=== PATIENT | male | born 1955 ===

== ENCOUNTER 2023-04-29 07:40 | Inpatient (IN) | payer MEDICARE, MEDICAID, SELFPAY ==
[2023-04-29] VITALS (10 sets, daily range): BP systolic 110–145; BP diastolic 56–79; PULSE 86–104; RESP 14–20; TEMP 35.4–36.9; O2SAT 96–99; BMI 21.7
--- NOTE | ~2023-04-29 | XR_ITS ---
EXAMINATION: XR CHEST CLINICAL INFORMATION: Weakness COMPARISON: None available. TECHNIQUE: Frontal view of the chest was obtained. FINDINGS: No significant abnormality is noted involving the heart, lungs, mediastinum, bony thorax or soft tissues. XR/XR chest 1V IMPRESSION: Unremarkable chest examination.
--- NOTE | ~2023-04-29 | CT_ITS ---
EXAMINATION: CT HEAD WITHOUT CONTRAST (STROKE PROTOCOL) CLINICAL INFORMATION: Stroke protocol. Mental confusion, not responsive to commands. COMPARISON: CT scan of brain on 07/31/2013 TECHNIQUE: Contiguous axial imaging was performed from the skull base to vertex without intravenous administration of contrast. This CT examination was performed using dose optimization techniques as appropriate, variously including the following: *Automated exposure control *Adjustment of mA and/or kV according to patient size (this includes techniques or standardized protocols for targeted exams where dose is matched to indication/reason for exam; i.e. extremities or head) *Use of iterative reconstruction technique DLP: 1082 mGy-cm FINDINGS: Ventricles, sulci and cisterns are dilated. Patchy asymmetric decrease in attenuation is seen in left parietal periventricular and deep white matter There is no midline shift, no abnormal intra- or extra- axial fluid accumulation. Mason and white matter differentiation is normal. Bone window images show no evidence of skull fracture. CT/CT head for stroke IMPRESSION: 1. Interval development of cerebral atrophy and ventriculomegaly. 2. Interval development of left parietal periventricular and deep white matter ischemic lesion or probably chronic white matter infarct. 3. No intracranial hemorrhage or skull fracture is seen. 4. No evidence of space occupying lesion could be found. This critical result was discussed with Dr. Bella Peters at 1025 hours on 04/30/2023. It was ascertained that the content and urgency of the report was understood at the time of direct communication.
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
--- NOTE | 2023-04-29 08:19 | ECG_ITS ---
Test Reason : weakness Blood Pressure : / mmHG Vent. Rate : 085 BPM Atrial Rate : 085 BPM P-R Int : 144 ms QRS Dur : 074 ms QT Int : 392 ms P-R-T Axes : 061 026 059 degrees QTc Int : 466 ms Normal sinus rhythm Normal ECG No previous ECGs available Referred By: Aravnid Ramirez Electronically Signed By:MELANI WELDON MD
[2023-04-29 09:02] LABS: Appearance Urine Clear; Color Urine Yellow; Glucose Urine UA Negative (Negative); Leukocyte Esterase Urine Negative (Negative); Nitrite Urine Negative (Negative); Specific Gravity - Urine 1.015 (1.005-1.025); UMIC TRIGGER UACC YES; Urine Blood Large (3+) (Negative); Urine Ketones Negative (Negative); Urine Protein 30 (1+) mg/dL (Neg-Trace)
[2023-04-29 09:07] LABS: Bacteria Urine None Seen (None Seen); Hyaline Casts Urine 0-2 /LPF (0-2); RBC Urine >20 /HPF (0-2); Squamous Epithelial Cell Urine 0-2 /HPF (0-2); WBC Urine 0-5 /HPF (0-5)
[2023-04-29 09:08] LABS: Basophils Percent Auto 0.3 % (0-2); Eosinophils Absolute Auto 0.4 X10*3/uL (0.0-0.4); Eosinophils Percent Auto 3.2 % (0-4); Hematocrit 23.4 % (42.0-52.0); Hemoglobin 7.1 g/dl (14.0-18.0); Imm Gran Abs Auto 0.19 X10*3/uL (0.00-0.03); Imm Gran Pct Auto 1.7 % (0.0-0.4); Lymphocytes Absolute Auto 1.5 X10*3/uL (1.2-4.9); Lymphocytes Percent Auto 13.3 % (20-40); MANUAL DIFF FLAG SCAN; Mean Corpuscular HGB Conc 30.3 g/dl (31.0-36.0); Monocytes Percent Auto 9.3 % (2-11); Neutrophils Absolute Auto 7.9 x10*3/uL (2.0-8.3); Neutrophils Percent Auto 72.2 % (45-73); PLT CLUMP 1; Red Blood Count 2.63 X10*6/uL (4.60-5.80); Red Cell Distribution Width 14.9 % (11.0-16.0); SCAN SMEAR FLAG 1
[2023-04-29 09:18] LABS: Alanine Aminotransferase 21 U/L (0-40); Albumin Level 3.1 g/dL (3.5-5.0); Alkaline Phosphatase 144 U/L (39-117); Anion Gap 15 (12-20); Aspartate Amino Transferase 26 U/L (5-37); Bilirubin Total 0.2 mg/dL (0.0-1.0); Blood Urea Nitrogen 34 mg/dL (9-16); Calcium 10.2 mg/dL (8.4-10.2); Carbon Dioxide 25 mmol/L (22-29); Chloride 104 mmol/L (96-108); Creatinine Clr Calc Pharmacy 61.2; Estimated Glomerular Filt Rate > 60; Glucose Random 98 mg/dL (60-115); Lipase 18 U/L (8-78); Potassium 4.7 mmol/L (3.3-5.1); Sodium 139 mmol/L (135-145); Total Protein 8.8 g/dL (6.5-8.0)
[2023-04-29 09:24] LABS: Troponin-I High Sensitivity < 2.7 ng/L (<3.5-35.0)
[2023-04-29 09:40] LABS: SLIDE REVIEW VERIFIED
[2023-04-29 09:44] LABS: Influenza A PCR NEGATIVE (Negative); Influenza B PCR NEGATIVE (Negative); Resp Syncy Virus RNA Qual PCR NEGATIVE (Negative); SARS COV2 PCR INHOUSE NEGATIVE (Negative)
[2023-04-29 09:52] LABS: INTERNATIONAL NORM RATIO 1.1 (0.9-1.1); Prothrombin Time 13.3 SEC (11.1-13.3)
[2023-04-29 09:54] LABS: Partial Thromboplastin Time 36.1 SEC (26.0-36.8)
[2023-04-29 10:21] LABS: OBS Int Ctl Valid YES; OBS1 NEGATIVE (NEGATIVE)
--- NOTE | 2023-04-29 11:48 | PC.NURSE ---
First unit of RBC transfusing, this RN at bedside. Pt tolerating infusion well, denies any SOB, pain or complaints.
--- NOTE | 2023-04-29 11:54 | PC.NURSE ---
Pt continues to tolerate infusion well, no complaints. VSS.
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
[2023-04-29 13:25] LABS: Iron 44 mcg/dL (45-160); Lactate Dehydrogenase 368 U/L (118-273); Percent Iron Saturation 21 % (15-50); Total Iron Binding Capacity 206 mcg/dL (228-428); Unsaturated Iron Binding 162 ug/dL
--- NOTE | 2023-04-29 13:48 | PHA.MEDREC ---
Pharmacy Consult ? Medication Reconciliation Pharmacy has completed the medication reconciliation.Med rec complete, used list from [facility]
[2023-04-29 14:29] LABS: Ferritin 1593 ng/mL (20-250)
[2023-04-29] MEDS: Baclofen 10 MG TABLET 5 MG PO ×2 (17:24→21:11)
[2023-04-29 20:31] LABS: MANUAL DIFF FLAG NO
[2023-04-29 20:37] LABS: Basophils Percent Auto 0.3 % (0-2); Eosinophils Absolute Auto 0.4 X10*3/uL (0.0-0.4); Hemoglobin 8.4 g/dl (14.0-18.0); Imm Gran Abs Auto 0.15 X10*3/uL (0.00-0.03); Imm Gran Pct Auto 1.3 % (0.0-0.4); Lymphocytes Absolute Auto 1.2 X10*3/uL (1.2-4.9); Lymphocytes Percent Auto 10.4 % (20-40); Mean Corpuscular HGB Conc 32.3 g/dl (31.0-36.0); Mean Corpuscular Hemoglobin 28.4 pg (27.0-33.0); Mean Corpuscular Volume 87.8 fL (80.0-98.0); Mean Platelet Volume 9.1 fL (9.4-12.4); Monocytes Absolute Auto 1.4 X10*3/uL (0.1-1.2); Neutrophils Absolute Auto 8.7 x10*3/uL (2.0-8.3); Platelet Count 548 X10*3/uL (160-400); Red Blood Count 2.96 X10*6/uL (4.60-5.80); Red Cell Distribution Width 14.5 % (11.0-16.0)
[2023-04-29] MEDS: carvediloL 12.5 MG TABLET PO (21:11)
[2023-04-29] MEDS: Docusate Sodium 100 MG/10 ML LIQUID PO (21:11)
[2023-04-29] MEDS: QUEtiapine Fumarate 50 MG TABLET PO (21:11)
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
[2023-04-30] VITALS (7 sets, daily range): BP systolic 95–137; BP diastolic 56–73; PULSE 77–98; RESP 15–18; TEMP 36.4–37.7; O2SAT 96–99; BMI 21.7
--- NOTE | 2023-04-30 | EEG_ITS ---
This is a 16 channel EEG with an EKG lead. The patient is reported confused during the tracing. Background EEG rhythm at times was low amplitude, fast with intermittent generalized slowing with transition to theta to delta range with no obvious asymmetry or paroxysmal tendency. No obvious sharp waves or spikes were noted. Photic stimulation did not produce any significant driving. Hyperventilation was not performed. Cardiac lead did not reveal any significant abnormality. IMPRESSION: No significant abnormality or epileptic tendency noted on this EEG other than generalized slowing. MD CHRISTIANE Obrien/JOSÉ MANUEL / [id number]
[2023-04-30] MEDS: Omeprazole/Na Bicarb Oral Susp 20 MG/10 ML UD Cup G-TUBE (06:28)
[2023-04-30 06:50] LABS: Basophils Absolute Auto 0.1 X10*3/uL (0.0-0.2); Basophils Percent Auto 0.4 % (0-2); Eosinophils Absolute Auto 0.3 X10*3/uL (0.0-0.4); Eosinophils Percent Auto 2.2 % (0-4); Hemoglobin 8.5 g/dl (14.0-18.0); Imm Gran Abs Auto 0.18 X10*3/uL (0.00-0.03); Imm Gran Pct Auto 1.5 % (0.0-0.4); Lymphocytes Absolute Auto 1.2 X10*3/uL (1.2-4.9); Lymphocytes Percent Auto 9.7 % (20-40); MANUAL DIFF FLAG SCAN; Mean Corpuscular HGB Conc 32.7 g/dl (31.0-36.0); Mean Corpuscular Hemoglobin 28.3 pg (27.0-33.0); Mean Corpuscular Volume 86.7 fL (80.0-98.0); Mean Platelet Volume 8.8 fL (9.4-12.4); Monocytes Absolute Auto 1.6 X10*3/uL (0.1-1.2); Neutrophils Absolute Auto 8.8 x10*3/uL (2.0-8.3); Neutrophils Percent Auto 73.2 % (45-73); Platelet Count 533 X10*3/uL (160-400); Red Cell Distribution Width 14.5 % (11.0-16.0); SCAN SMEAR FLAG 1
[2023-04-30 07:09] LABS: Blood Urea Nitrogen 24 mg/dL (9-16); Calcium 9.9 mg/dL (8.4-10.2); Creatinine Clr Calc Pharmacy 66.4; Estimated Glomerular Filt Rate > 60; Glucose Random 100 mg/dL (60-115)
[2023-04-30 07:20] LABS: Anion Gap 15 (12-20); Carbon Dioxide 23 mmol/L (22-29); Chloride 107 mmol/L (96-108); Potassium 3.7 mmol/L (3.3-5.1); Sodium 141 mmol/L (135-145)
[2023-04-30 07:36] LABS: SLIDE REVIEW VERIFIED
[2023-04-30] MEDS: Docusate Sodium 100 MG/10 ML LIQUID PO ×2 (09:15→22:27)
[2023-04-30] MEDS: carvediloL 12.5 MG TABLET PO ×2 (09:15→22:27)
[2023-04-30] MEDS: QUEtiapine Fumarate 25 MG TABLET PO (09:15)
[2023-04-30] MEDS: Baclofen 10 MG TABLET 5 MG PO ×3 (09:15→22:28)
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
--- NOTE | 2023-04-30 11:20 | MHC.CM.PN ---
Addendum entered by Natalie Seaman 04/30/23 13:11: MARICHUY 04/29. This CM spoke with pts brother/HCP Sandeep to complete CM intake assessment. Per pts brother, pt is confused and he has been making decisions for him. At pts baseline he is unable to ambulate and is dependent on a wheelchair. Prior to [facility] and [facility], pt resides in an apartment with assistance from [place] on. DCP: return to [facility] when medically cleared via BLS transport. Original Note: This CM attempted to meet with pt to complete CM intake assessment, however pt somnolent, opening eyes briefly but not verbally responding. This CM called pts brother (emergency contact), voicemail left, awaiting return call. Per EMR review, pt came from [facility], return referral placed in [facility]. Per [facility], pt is a medicaid bed hold and brother Sandeep is his HCP, copy requested from [facility]. PCP: Dr. Mally Lin
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
--- NOTE | 2023-04-30 13:36 | HO.WOUND ---
Wound Consult: Initial 68yr old?M admitted to [facility] on 04/29/23 - See progress notes and H&P for detailed history.? Wound consult placed for Bilateral Lower Legs, chart review reveals Sacrum and Right ischium presence of wound.? Patient agreeable to assessment and photo documentation.? Sacrum and Right Ischium Sacrum Etiology: ?Stage 3 Pressure Injury ?Present on Admission Measurements:see charting for detailed measurements Wound Bed: Full thickness moist red clean tissue Drainage / Odor: small amount of serosang drainage - no odor noted Edges: ? Irregular and macerated - friction component noted and MASD (Moisture Associated Skin Damage) Ciara wound: ?Evidence of previous injury and MASD -IAD - No Induration, Fluctuance or Warmth noted Goals of Treatment: ? Triad and Foam dressing to protect from friction and moisture Right Ischium / Buttock Etiology: ?Stage 3 Pressure Injury ?Present on Admission Measurements:see charting for detailed measurements Wound Bed: Partial thickness moist red clean tissue Drainage / Odor: small amount of serosang drainage - no odor noted Edges: ? Irregular Ciara wound: ?Evidence of previous injury and MASD -IAD - No Induration, Fluctuance or Warmth noted Goals of Treatment: ? Triad and Foam dressing to protect from friction and moisture ? Right Thigh Skin Graft Left thigh Skin Graft Etiology: ??Resurfacing Skin Graft Site Wound Bed: Mainly healed donor site scattered areas of stable scabs Drainage / Odor: None noted Edges: ? Irregular Ciara wound:Intact - No Induration, Fluctuance or Warmth noted Pain: Denies Goals of Treatment: ?No topical interventions needed at this time Recommendations: 1. Turn and Reposition every 2 hours and as needed for patient comfort.? Use pillows or wedges to support off loading positions. 2. Off Load all bony prominences with use of pillows and heel boots if needed.? Apply Preventative foams where needed. ? 3. Monitor for incontinence and moisture control, use barrier creams when needed for prevention and treatment. 4. Provide adequate and supplemental nutrition.? 5. Continue low air loss mattress. 6. Sacrum and Right Ischium - Cleanse with PH balance spray or wipes, pat dry. ?Apply thin layer of Triad to wound bed. Do not remove all of paste between applications as this may cause further skin damage.? Cover with foam dressing to aid in off loading and protection from friction. 7
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
--- NOTE | 2023-04-30 14:21 | MHC.CM.PN ---
Pt changed to inpatient, IMM given 04/29.
[2023-04-30] MEDS: QUEtiapine Fumarate 50 MG TABLET PO (22:27)
[2023-05-01 03:14] VITALS: BP 128/59; PULSE 92; RESP 16; TEMP 36.4; O2SAT 97
[2023-05-01] MEDS: Omeprazole/Na Bicarb Oral Susp 20 MG/10 ML UD Cup G-TUBE (06:45)
[2023-05-01 07:15] VITALS: BP 127/65; PULSE 93; RESP 18; TEMP 36.3; O2SAT 98
[2023-05-01] MEDS: carvediloL 12.5 MG TABLET PO ×2 (09:34→22:03)
[2023-05-01] MEDS: QUEtiapine Fumarate 25 MG TABLET PO (09:34)
[2023-05-01] MEDS: Docusate Sodium 100 MG/10 ML LIQUID PO ×2 (09:34→22:04)
[2023-05-01] MEDS: Baclofen 10 MG TABLET 5 MG PO ×3 (09:35→22:02)
--- NOTE | 2023-05-01 11:30 | MHC.CM.PN ---
Patient from [facility] DX Anemia. Neuro consult complete. a clinical update has been sent to the faciity. Per MD rounds Patient may dc after EEG performed. DP return to [facility] via BLS. A call was placed to the Liason Hanna Sweet. She has been informed that the patient may discharge later today after the EEG. DP return to [facility] via BLS.
[2023-05-01 12:00] VITALS: BP 120/57; PULSE 89; RESP 18; TEMP 36.3; O2SAT 100
--- NOTE | 2023-05-01 13:10 | PC.NURSE ---
family at bedside requesting information. informed. HCP mao phone number [phone]. other family members contact info are antwan Sheriff [phone] and Mora [phone]
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
[2023-05-01 15:08] VITALS: BP 119/68; PULSE 91; RESP 18; TEMP 36.1; O2SAT 98
[2023-05-01 19:11] VITALS: BP 134/74; PULSE 95; RESP 18; TEMP 36.9; O2SAT 97
[2023-05-01] MEDS: QUEtiapine Fumarate 50 MG TABLET PO (22:01)
[2023-05-01 23:57] VITALS: BP 118/61; PULSE 89; RESP 18; TEMP 36.8; O2SAT 97
[2023-05-02 04:00] VITALS: BP 134/80; PULSE 83; RESP 18; TEMP 36.1; O2SAT 98
[2023-05-02 07:32] VITALS: BP 128/58; PULSE 80; RESP 20; TEMP 36.7; O2SAT 97
[2023-05-02] MEDS: Docusate Sodium 100 MG/10 ML LIQUID PO (09:01)
[2023-05-02] MEDS: carvediloL 12.5 MG TABLET PO (09:02)
[2023-05-02] MEDS: Baclofen 10 MG TABLET 5 MG PO (09:02)
[2023-05-02] MEDS: QUEtiapine Fumarate 25 MG TABLET PO (09:02)
[2023-05-02 09:18] LABS: Hematocrit 25.7 % (42.0-52.0); Hemoglobin 8.3 g/dl (14.0-18.0); Mean Corpuscular HGB Conc 32.3 g/dl (31.0-36.0); Mean Corpuscular Hemoglobin 28.8 pg (27.0-33.0); Mean Corpuscular Volume 89.2 fL (80.0-98.0); Mean Platelet Volume 8.9 fL (9.4-12.4); Platelet Count 457 X10*3/uL (160-400); Red Blood Count 2.88 X10*6/uL (4.60-5.80); Red Cell Distribution Width 14.6 % (11.0-16.0); White Blood Count 10.6 X10*3/uL (4.8-10.8)
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
--- NOTE | 2023-05-02 10:50 | MHC.CM.PN ---
PT MEDICALLY CLEARED TO RETURN TO [facility] FOR TRANSPORT AT 2PM, CM ATTEMPTED TO CONTACT PT'S BROTHER/HCP AT NUMBER ON FILE, DETAILED MESSAGE LEFT W/CM CONTACT NUMBER.
[2023-05-02] MEDS: oxyCODONE HCl Immed Release 5 MG TABLET PO (11:36)
[2023-05-02 12:00] VITALS: BP 137/60; PULSE 82; RESP 20; TEMP 37; O2SAT 99
[2023-05-02] MEDS: Acetaminophen 325 MG TABLET 650 MG PO (13:49)
== END 2023-05-02 14:20 | disposition home or self-care (01) | DRG 682 ==
LOC: HO.ED 08:04 → HO.EDOVER 13:19 → HO.IMC 17:23 → HO.EDOVER 04-30 12:47
PROVIDERS: Admitting Provider Physician Assistant; Emergency Provider Emergency Medicine Emergency Medical Services; PCP Internal Medicine; Visit Provider Nurse Practitioner Acute Care
DX: I12.9 Hypertensive chronic kidney disease with stage 1 through stage 4 chronic kidney disease, or unspecified chronic kidney disease (principal); G92.8 Other toxic encephalopathy; L89.313 Pressure ulcer of right buttock, stage 3; L89.153 Pressure ulcer of sacral region, stage 3; T31.11 Burns involving 10-19% of body surface with 10-19% third degree burns; F20.9 Schizophrenia, unspecified; Z93.1 Gastrostomy status; T24.012A Burn of unspecified degree of left thigh, initial encounter; T24.011A Burn of unspecified degree of right thigh, initial encounter; X08.8XXA Exposure to other specified smoke, fire and flames, initial encounter; R13.19 Other dysphagia; D63.1 Anemia in chronic kidney disease; Z20.822 Contact with and (suspected) exposure to COVID-19; Z79.899 Other long term (current) drug therapy
CPT/HCPCS: 0241U; 36415; 70450; 71045; 80048; 80053; 81001; 81003; 82272; 82728; 83540; 83615; 83690; 84484; 85025; 85027; 85610; 85730; 86850; 86900; 86901; 86923; 93005; 95816; 99222; 99285; P9016

== ENCOUNTER → 2023-04-29 08:19 | Outpatient (BNV) | payer MEDICARE, MEDICAID, SELFPAY | PROVIDERS: Admitting Provider Physician Assistant; Emergency Provider Emergency Medicine Emergency Medical Services; PCP Internal Medicine; Visit Provider Internal Medicine Cardiovascular Disease | DX: R53.1 Weakness (principal) | CPT/HCPCS: 93010 ==

== ENCOUNTER → 2023-04-29 12:39 | Outpatient (BNV) | payer MEDICARE, MEDICAID, SELFPAY | PROVIDERS: Admitting Provider Physician Assistant; Emergency Provider Emergency Medicine Emergency Medical Services; PCP Internal Medicine; Visit Provider Psychiatry & Neurology Neurology | DX: G92.8 Other toxic encephalopathy (principal) | CPT/HCPCS: 99222 ==

== ENCOUNTER → 2023-04-29 12:39 | Outpatient (BNV) | payer MEDICARE, MEDICAID, SELFPAY | PROVIDERS: Admitting Provider Physician Assistant; Emergency Provider Emergency Medicine Emergency Medical Services; PCP Internal Medicine; Visit Provider Physician Assistant | DX: D64.9 Anemia, unspecified (principal) | CPT/HCPCS: 99223; 99232; 99239 ==